=== PATIENT | female | born 1980 | race Two or more races ===

== ENCOUNTER → 2021-05-24 | Outpatient (CLI) | payer MEDICAID ==
[~2021-05-24] MED LIST: LEVO137T3
== END | disposition home or self-care (01) ==
LOC: XYW 08:05
PROVIDERS: ATTEND Internal Medicine Pulmonary Disease
DX: I07.1 Rheumatic tricuspid insufficiency (principal); I10 Essential (primary) hypertension
CPT/HCPCS: 93306

== ENCOUNTER → 2021-06-12 | Outpatient (CLI) | payer MEDICAID | END | disposition home or self-care (01) | LOC: LAB 16:33 | PROVIDERS: ATTEND Internal Medicine Pulmonary Disease | DX: Z01.812 Encounter for preprocedural laboratory examination (principal); Z20.822 Contact with and (suspected) exposure to COVID-19 | CPT/HCPCS: 36415; 87426 ==